=== PATIENT | male | born 2005 | race Hispanic/Latino ===

== ENCOUNTER 2024-05-19 19:59 | Emergency (ER) | payer SELFPAY ==
[2024-05-19] MEDS ORDERED: diphenhydrAMINE 50 MG/ML VIAL ONE (22:09)
[2024-05-19] MEDS ORDERED: Ketorolac Tromethamine 30 MG (1 mL) VIAL ONE (22:09)
[2024-05-19] MEDS ORDERED: Metoclopramide HCl 10 MG (2 mL) VIAL ONE (22:09)
== END 2024-05-19 23:35 | disposition home or self-care (01) ==
LOC: ERS 19:59
DX: R51.9 Headache, unspecified (principal); R93.0 Abnormal findings on diagnostic imaging of skull and head, not elsewhere classified
CPT/HCPCS: 70450; 87428; 96365; 96375; J1200; J1885; J2765